=== PATIENT | female | born 1975 | race Caucasian/White ===

== ENCOUNTER → 2018-11-06 | Outpatient (CLI) | payer BC ==
--- NOTE | 2018-11-06 18:27 | Diagnostic Imaging Report ---
INDICATION: Dysfunctional uterine bleeding. TECHNIQUE: Pelvic sonography performed with transabdominal and transvaginal views. FINDINGS: The uterus measures 7.8 x 4.0 x 4.1 cm. There is no uterine mass. Endometrium measures 4 mm in thickness. There appears to be a trace of fluid in the endometrium, which may represent blood given the clinical history. The right ovary measures 2.2 x 1.5 x 1.5 cm. The right ovary contains color flow. The left ovary measures 3.7 x 2.5 x 2.2 cm. There appears to be a collapsed cyst in the left ovary measuring 2.3 x 1.6 x 1.3 cm. There is a trace of free fluid in the cul-de-sac. The left ovary does contain color flow. IMPRESSION: Normal-appearing uterus except for a trace of fluid in the endometrium, which may represent blood given the clinical history. The endometrium, however, does not appear to be appreciably thickened. The right ovary appears normal. The left ovary contains a probable collapsed cyst measuring 2.3 x 1.6 x 1.3 cm. Consider followup as clinically warranted. There is a trace of fluid in the cul-de-sac. Dictated on workstation # [id number]
--- NOTE | 2018-11-07 11:31 | Diagnostic Imaging Report ---
INDICATION: Routine screening. COMPARISON: 01/25/2014. TECHNIQUE: 2D and 3D bilateral screening mammography was performed with CAD. FINDINGS: Both breasts are heterogeneously dense, limiting the sensitivity of mammography. No dominant mass or malignant appearing microcalcifications are seen. The axillae are unremarkable. IMPRESSION: No mammographic features suspicious for malignancy are identified. ACR BI-RADS Category 1: Negative. Result letter will be mailed to the patient. Note: At least 10% of breast cancer is not imaged by mammography. Dictated by: Dictated on workstation # [id number]
== END ==
LOC: RAD 15:05
PROVIDERS: ATTEND Nurse Practitioner
DX: Z12.31 Encounter for screening mammogram for malignant neoplasm of breast (principal); N93.8 Other specified abnormal uterine and vaginal bleeding
CPT/HCPCS: 76830; 76856; 77067

== ENCOUNTER → 2018-12-11 | Outpatient (CLI) | payer BC ==
[2018-12-11 13:32] LABS: HEMATOCRIT 41 % (35-52); HEMOGLOBIN 14.2 G/DL (11.5-16.0); MEAN CORPUSCULAR HEMOGLOBIN 33 PG (25-34); MEAN CORPUSCULAR HGB CONC 35 G/DL (32-36); MEAN CORPUSCULAR VOLUME 94 FL (80-99); PLATELET COUNT 375 10^3/uL (130-400); RED CELL DISTRIBUTION WIDTH 11.7 % (10.0-14.5); WHITE BLOOD COUNT 7.1 10^3/uL (4.3-11.0)
[2018-12-11 13:33] LABS: BASOPHILS # (AUTO) 0.1 10^3/uL (0.0-0.1); BASOPHILS % (AUTO) 1 % (0-10); EOSINOPHILS # (AUTO) 0.2 10^3/uL (0.0-0.3); EOSINOPHILS % (AUTO) 3 % (0-10); LYMPHOCYTES % (AUTO) 23 % (12-44); MONOCYTES # (AUTO) 0.4 X 10^3 (0.0-1.0); MONOCYTES % (AUTO) 5 % (0-12); NEUTROPHILS # (AUTO) 4.9 X 10^3 (1.8-7.8); NEUTROPHILS % (AUTO) 69 % (42-75)
[2018-12-11 13:34] LABS: LYMPHOCYTES # (AUTO) 1.6 X 10^3 (1.0-4.0)
== END ==
LOC: LAB FS 13:18
PROVIDERS: ATTEND Nurse Practitioner
DX: D72.829 Elevated white blood cell count, unspecified (principal); R79.89 Other specified abnormal findings of blood chemistry
CPT/HCPCS: 36415; 85025

== ENCOUNTER → 2018-12-16 | Outpatient (CLI) | payer BC | LOC: LAB FS 12:44 | PROVIDERS: ATTEND Nurse Practitioner | DX: R79.89 Other specified abnormal findings of blood chemistry (principal) | CPT/HCPCS: 36415; 84443 ==

== ENCOUNTER → 2020-04-08 | Outpatient (CLI) | payer BC ==
--- NOTE | 2020-04-11 09:47 | Diagnostic Imaging Report ---
INDICATION: Routine screening. COMPARISON: 11/06/2018 and 01/25/2014. TECHNIQUE: 2D and 3D bilateral screening mammography was performed with CAD. FINDINGS: Both breasts remain heterogeneously dense, limiting the sensitivity of mammography. The parenchymal pattern is stable. No dominant mass or malignant appearing microcalcifications are seen. The axillae are unremarkable. IMPRESSION: No mammographic features suspicious for malignancy are identified. ACR BI-RADS Category 1: Negative. Result letter will be mailed to the patient. Note: At least 10% of breast cancer is not imaged by mammography. Dictated by: Dictated on workstation # [id number]
== END ==
LOC: RAD 14:10
PROVIDERS: ATTEND Obstetrics & Gynecology
DX: Z12.31 Encounter for screening mammogram for malignant neoplasm of breast (principal)
CPT/HCPCS: 77063; 77067

== ENCOUNTER 2020-05-10 10:29 | Outpatient (RCR) | payer BC ==
[~2020-05-10] VITALS: Ht 160 cm; Wt 87.3 kg
[2020-05-10] MEDS ORDERED: MULT-884 PO (11:49)
== END 2020-05-10 12:12 | disposition home or self-care (01) ==
LOC: PREOP 10:29
PROVIDERS: ATTEND Obstetrics & Gynecology
DX: Z01.818 Encounter for other preprocedural examination (principal)

== ENCOUNTER 2020-09-08 11:45 | Outpatient (RCR) | payer BC ==
[~2020-09-08] VITALS: Ht 160 cm; Wt 81.0 kg
[~2020-09-08 11:45] MED LIST: LORA10CA PO; MULT-884 PO
== END 2020-09-08 12:22 | disposition home or self-care (01) ==
LOC: PREOP 11:45
PROVIDERS: ATTEND Obstetrics & Gynecology
DX: Z01.812 Encounter for preprocedural laboratory examination (principal); N92.0 Excessive and frequent menstruation with regular cycle; N81.9 Female genital prolapse, unspecified; N39.3 Stress incontinence (female) (male); Z20.828 Contact with and (suspected) exposure to other viral communicable diseases

== ENCOUNTER → 2020-09-09 | Outpatient (CLI) | payer BC ==
[~2020-09-09] MED LIST changes: +ACET-93 PO; +DCS100C PO; +IBUP-844 PO; +OXC5T PO
== END ==
LOC: LAB FS 10:20
PROVIDERS: ATTEND Obstetrics & Gynecology
DX: Z01.812 Encounter for preprocedural laboratory examination (principal); N92.0 Excessive and frequent menstruation with regular cycle; N81.9 Female genital prolapse, unspecified; N39.3 Stress incontinence (female) (male); Z20.828 Contact with and (suspected) exposure to other viral communicable diseases
CPT/HCPCS: 87635

== ENCOUNTER 2020-09-13 12:03 | Day surgery (SDC) | payer BC ==
[2020-09-13] VITALS (11 sets, daily range): BP systolic 90–113; BP diastolic 49–73
[~2020-09-13] VITALS: Ht 160 cm; Wt 84.4 kg
[~2020-09-13 12:03] MED LIST changes: -ACET-93 PO; -DCS100C PO; -IBUP-844 PO; -OXC5T PO
[2020-09-13] MEDS ORDERED: ceFAZolin INJECTION 1,000 MG in WATER (STERILE) FOR INJECTION 10 ML IV ONE (12:15)
[2020-09-13] MEDS ORDERED: metroNIDAZOLE 500MG/100ML IVPB 100 ML IV ONE (12:15)
[2020-09-13] MEDS: LACTATED RINGERS 1,000 ML IV PRN ×2 (13:12→15:32)
[2020-09-13 13:30] LABS: BASOPHILS % (AUTO) 0 % (0-10); EOSINOPHILS # (AUTO) 0.1 10^3/uL (0.0-0.3); EOSINOPHILS % (AUTO) 1 % (0-10); HEMATOCRIT 42 % (35-52); HEMOGLOBIN 14.7 g/dL (11.5-16.0); LYMPHOCYTES # (AUTO) 1.3 10^3/uL (1.0-4.0); LYMPHOCYTES % (AUTO) 13 % (12-44); MEAN CORPUSCULAR HEMOGLOBIN 33 pg (25-34); MEAN CORPUSCULAR HGB CONC 35 g/dL (32-36); MEAN CORPUSCULAR VOLUME 94 fL (80-99); MONOCYTES # (AUTO) 0.4 10^3/uL (0.0-1.0); MONOCYTES % (AUTO) 5 % (0-12); NEUTROPHILS # (AUTO) 7.6 10^3/uL (1.8-7.8); NEUTROPHILS % (AUTO) 81 % (42-75); PLATELET COUNT 406 10^3/uL (130-400); WHITE BLOOD COUNT 9.4 10^3/uL (4.3-11.0)
--- NOTE | 2020-09-13 13:41 | History & Physical-Surgical ---
HPO-Surgical History of Present Illness Chief Complaint: menorrhagia, cystocele, stress incontinence Has been scheduled and rescheduled twice due to my family emergencies. Has been having heavy periods. Reports last year Cassi put her on a certain control for 3 months and didn't help. She had an ablation 5-6 years ago that worked for about 1-2 years. Reports her periods are not regular, some months she will have bleeding and other months she will just have mood swings and pain. She does spot. Has stress incontinence . Reports she has family history of gynecological cancer. She is scheduled for RaTH,briseida salpingectomy, PV sling, possible anterior colporrhaphy. She asked about leaving vs removing ovaries. Discussed in full. At this point she opts for leaving her ovaries. She has completed childbearing. No change in history since last visit. Pap at last visit was negative/negative Risks include bleeding, infection, injury to bowel, bladder and ureter. Patient understands these risks and consents obtained. NPO after midnight. Prophylactic antibiotics and SCDs. Diagnosis/Surgical Indication: MENNORHAGIA Procedure: RATH, BRISEIDA SALPINGECTOMY, SOLYX SLING, POSS ANT REPAIR, OIP Date of Surgery: Sep 13, 2020 Weight (Pounds): 186 Height (Inches): 63 Allergies and Home Medications Allergies Coded Allergies: acetaminophen (Verified Allergy, Mild, N/V, 08/31/20) erythromycin base (Verified Allergy, Mild, N/V, 08/31/20) hydrocodone (Verified Allergy, Mild, N/V, 08/31/20) Home Medications Loratadine 10 Mg Capsule, 10 MG PO DAILY, (Reported) Multivits,Ca,Minerals/Iron/FA 1 Each Tablet, 1 EACH PO DAILY, (Reported) Patient Home Medication List Home Medication List Reviewed: Yes Past Iaaixky-Wplwqb-Ayamcz Hx Patient Social History Number of Children: 2 Number of living children: 2 Employed/Student: employed Alcohol Use: Denies Use Recreational Drug Use: No Smoking Status: Never a Smoker 2nd Hand Smoke Exposure: No Recent Foreign Travel: No Contact w/other who traveled: No Recent Hopitalizations: No Immunizations Up To Date Date of Influenza Vaccine: Jun 27, 2020 Seasonal Allergies Seasonal Allergies: Yes Surgeries Yes (endometrial ablation) Tonsillectomy Respiratory No Cardiovascular No Neurological No Reproductive System Sexually Transmitted Disease: No HIV/AIDS: No Female Reproductive Disorders: Menstrual Problems Genitourinary Yes (stress incont) Gastrointestinal No Musculoskeletal No Endocrine History of Endocrine Disorders: No HEENT History of HEENT Disorders: No Cancer No Psychosocial History of Psychiatric Problem: No Integumentary History of Skin or Integumenta: No Blood Transfusions History of Blood Disorders: No Exam Vital Signs Capillary Refill : Labs Laboratory Tests Test 09/13/20 12:20 Range/Units General Appearance: Alert, Oriented X3, Cooperative HEENT: Atraumatic, PERRLA Respiratory: Clear to Auscultation, Normal Air Movement Cardiovascular: Regular Rate, Normal S1, Normal S2 Assessment/Plan Assessment and Plan 1. abnormal uterine bleeding 2. incomplete uterovaginal prolapse 2. cystocele 3. Stress incontinence Surgery is planned for 09/13/2020. see above Admission Diagnosis Admission Status: Other (Same Day Surgery) STEVE BENJAMIN DO Sep 13, 2020 13:41
[2020-09-13] MEDS ORDERED: LIDOCAINE/EPI 1%-1:100,000 (XYLOCAINE) 50 ML ONE (13:54)
[2020-09-13] MEDS ORDERED: MIDAZOLAM 2 MG/2 ML (VERSED) VIAL ONE (14:02)
[2020-09-13] MEDS ORDERED: ONDANSETRON 4 MG/2 ML (SDV) Z0FRAN ONE (14:02)
[2020-09-13] MEDS ORDERED: SEVOFLURANE (ULTANE) 15 ML INHAL SOLN ONE ×4 (14:02→17:08)
[2020-09-13] MEDS ORDERED: LIDOCAINE PF 2% 5 ML (XYLOCAINE) VIAL ONE (14:02)
[2020-09-13] MEDS ORDERED: fentaNYL INJECTION 100 MCG/2 ML AMP ONE (14:02)
[2020-09-13] MEDS ORDERED: proPOfol 200 MG/20 ML (DIPRIVAN) VIAL IV ONE (14:02)
[2020-09-13] MEDS ORDERED: morphine INJ 4 MG/ML 1 ML (VIAL/SYRINGE) IVP PRN (15:00)
[2020-09-13] MEDS ORDERED: KETOROLAC 30 MG/ML VIAL IV SCH (15:00)
[2020-09-13] MEDS ORDERED: CHLORASEPTIC LOZENGE MM PRN (15:00)
[2020-09-13] MEDS ORDERED: ONDANSETRON 4 MG (ZOFRAN) ORAL DISSOLVE TAB PO PRN (15:00)
[2020-09-13] MEDS ORDERED: HYDROmorphone 2 MG/ML VIAL (DILAUDID) ONE (15:30)
[2020-09-13] MEDS ORDERED: ROCURONIUM 10 MG/ML 5 ML SYRINGE IV ONE ×2 (16:10→17:07)
[2020-09-13] MEDS ORDERED: NS (IVPB) 0 ML ONE (16:20)
[2020-09-13] MEDS ORDERED: ESTRADIOL VAGINAL CREAM 42.5 GM (ESTRACE) VG ONE (16:20)
[2020-09-13] MEDS ORDERED: KETOROLAC 30 MG/ML VIAL ONE (16:25)
--- NOTE | 2020-09-13 16:54 | Operative Report ---
Operative Report Date of Procedure/Surgery Sep 13, 2020 Surgeon (s) STEVE BENJAMIN DO Donation Worker (s): NA Post-Operative Diagnosis menorrhagia/s/p ablation; abnormal uterine bleeding incomplete urogenital prolapse stress incontinence cystocele Procedure Performed RaTH, bilateral salpingectomy Solyx pubovaginal sling Description of Procedure Anesthesia Type: General Estimated blood loss (mL): minimal Specimen(s) collected/removed uterus, bilateral tubes Description of the Procedure After informed consent was obtained, patient was taken into the operating room where general anesthetic was found to be adequate. She was prepped and draped in the usual sterile fashion in the dorsal lithotomy position. A Carver catheter was placed. A speculum was placed in the vagina. There was uterine prolapse to 2-3+ and a 2+ cystocele with minimal rectocele. There was > 45 degree rotation of the urethra. The cervix was visualized and the anterior lip was grasped with a sharp toothed tenaculum. The uterus was sounded and depth was approximately 8 centimeters. I placed the Liss device (8 cm) and a 3.0 cm collar was advanced over the cervix. I inserted the Liss without difficulty, inflating the balloon and securing it around the fornix of the cervix. The collar was then secured with sutures at 12 o'clock. Attention was then turned to the patient's abdomen. A supraumbilical incision was made about 8 mm. A Veress needle was inserted and I confirmed intraabdominal placement with a drop in pressure and the saline drop test. The opening pressure was 7 mmHg. I then insufflated the abdomen to a maximum of 15 mmHg with warmed CO2 gas. I placed an additional 8 mm trocar in the left abd omen lateral to the umbilicus approximately 15 cm. The second robotic port was placed about 12 cm lateral to the right placement. This was an 8 mm trocar. These were placed under direct visualization of the laparoscope. 1% lidocaine with epinephrine was injected prior to placement of all trocars. When all placements were confirmed, the patient was placed in steep Trendelenburg allowing adequate visualization and the robot was brought in for docking. The docking was accomplished without difficulty. I then took over the command of the robot utilizing the vessel sealer and monopolar wilbert. I was able to visualize the round ligaments bilaterally and grasped them and cauterized with bipolar cautery and then cut with my wilbert. At this point, I then did bilateral salpingectomy. I incised the mesosalpinx with the wilbert. Then, I grasped with cornu and transected bilaterally using the vessel sealer. I then moved my dissection to the posterior leaves of the broad ligament. I dissected the posterior leaves of the broad ligament off the uterine arteries skeletonizing them bilaterally. I then took a second clamp with the bipolar cautery and with the wilbert, transected the vessels away from the lateral aspect to the cervical stroma. I dissected the anterior peritoneum off the lower uterine segment. I continually pushed the bladder back and I took excessively great care and I was eventually able to dissect the vesicouterine peritoneum off the lower uterine segment. I then dissected in a V fashion towards the midline between the uterosacral ligaments. This allowed me to skeletonize the uterine vessels bilaterally. The balloon on the LISS was insufflated. This allowed me to see the LISS circumferentially. Then the administrative assistant coordinator removed the uterus, tubes through the vagina. She then left a sponge in the vagina to maintain the pneumoperitoneum. The ureters were continued to be visualized and were peristalsing. I then began closure of the vaginal cuff. The uterus was left in the vagina to maintain pneumoperitoneum. I closed the apices of the vaginal cuff with 2-0 Vicryl V lock sutures with a colposuspension through the uterosacral ligaments. This suspended the apices of the vaginal cuff. I extended this to the midline from both sides and overlapped the V lock sutures in the midline. Excellent closure is noted and hemostasis is achieved. All the needles were removed from the patient's abdomen. . Now, the robotic instruments were removed and the robot was docked back to laparoscopy. The pelvis was irrigated. There was no active bleeding noted. Bilateral ureters were seen the entire time during the surgery and were peristalsing. There was no excessive bleeding noted. The trocars were removed under direct visualization. The laparoscopic sites were visualized and found to be hemostatic. The trocar sites were injected with 0.25% Marcaine. The skin incisions were closed with 4-0 Monocryl in a subcuticular fashion and then with Dermabond. Op sites were placed over the incision sites. The instruments were removed from the vagina and I noted there were no abrasions. The patient was repositioned. The cystocele was mostly reduced so I proceeded with the pubovaginal sling. The periurethral area was injected with dilute vasopressin. I grasped in the midline with an Allis clamp and a 1 cm incision was made approximately 1.5 cm from the urethral meatus. I then dissected bilaterally to the obturator space bilaterally. I then placed the Solyx sling in the standard fashion. I then did cystoscopy and there was no abnormal pathology and no mesh in the bladder. The ureters were seen bilaterally and urine was effluxing from each side. I then tightened the sling after doing Crede maneuver with 300 ml urine in the bladder. The sling laid under the urethral in the midurethra without twisting or folds. There was minimal leakage noted. I then closed the epithelial incision with 4--0 Monocryl in a running fashion. There was good hemostasis. Sponge, lap, needle and instrument counts correct times two. Patient was awakened and taken to recovery in a stable condition. Findings of the Procedure enlarged, boggy uterus, long cervix, but good support at cuff normal appearing tubes Javier masters window, superficial endometriosis 2+ cystocele, improved with hysterectomy > 45 degree rotation of the urethra Allergies and Home Medications Allergies Coded Allergies: acetaminophen (Verified Allergy, Mild, N/V, 08/31/20) erythromycin base (Verified Allergy, Mild, N/V, 08/31/20) hydrocodone (Verified Allergy, Mild, N/V, 08/31/20) Home Medications Acetaminophen 500 Mg Tablet, 1,000 MG PO Q8HR Prescribed by: STEVE BENJAMIN on 09/13/201655 Docusate Sodium 100 Mg Capsule, 100 MG PO BID Prescribed by: STEVE BENJAMIN on 09/13/201655 Ibuprofen 600 Mg Tablet, 600 MG PO Q6HR Prescribed by: STEVE BENJAMIN on 09/13/201655 Loratadine 10 Mg Capsule, 10 MG PO DAILY, (Reported) Multivits,Ca,Minerals/Iron/FA 1 Each Tablet, 1 EACH PO DAILY, (Reported) Oxycodone Hcl 5 Mg Tab, 5 MG PO Q4HR PRN for To achieve TAG Prescribed by: STEVE BENJAMIN on 09/13/201655 Patient Home Medication List Home Medication List Reviewed: Yes STEVE BENJAMIN DO Sep 13, 2020 16:54
[2020-09-13] MEDS ORDERED: OXC5T PO (16:56)
[2020-09-13] MEDS ORDERED: DCS100C PO (16:56)
[2020-09-13] MEDS ORDERED: ACET-93 PO (16:56)
[2020-09-13] MEDS ORDERED: IBUP-844 PO (16:56)
--- NOTE | 2020-09-13 16:59 | Discharge Inst-Women's Service ---
Discharge Inst-Women's Serv Depart Medication/Instructions New, Converted or Re-Newed RX: Other (on chart and transmitted) Final Diagnosis abnormal uterine bleeding urogenital prolapse stress incontinence Problems Reviewed?: Yes Consults/Follow Up Additional Follow Up: Yes (1 week for incision check and 10-12 weeks for pelvic exam ) Activity Activity: Activity as Tolerated Driving Instructions: No Driving for 1 Week NO SMOKING: NO SMOKING Nothing Inside Vagina: No Douching, No [place], No Tampons (until cleared/10-12 weeks) Diet Discharge Diet: No Restrictions Symptoms to Report to : Bleeding Excessive, Pain Increased, Fever Over 101 Degrees F, Vaginal Bleeding Increase, Cramps in Feet or Legs, Vaginal Discharge Foul For Any Problems or Questions: Contact Your Physician Skin/Wound Care Infection Signs and Symptoms: Increased Redness, Foul Odor of Wound, Increased Drainage, Skin Itchy or Has a Rash, Increased Swelling, Temperature Above 101 F Operative Area Clean and Dry: You May Remove Bandage (leave in place for 72 hours, unless wet or soiled) Stitches/Christiana/Dermabond: Dermabond Bathing Instructions: STEVE Britton DO Sep 13, 2020 16:59
[2020-09-13] MEDS ORDERED: SUGAMMADEX 500 MG/5 ML VIAL (BRIDION) IV ONE (17:10)
[2020-09-13] MEDS ORDERED: HYDROmorphone 2 MG/ML VIAL (DILAUDID) IV ONE (17:15)
[2020-09-13] MEDS ORDERED: ONDANSETRON 4 MG/2 ML (SDV) Z0FRAN IVP PRN (17:15)
[2020-09-13] MEDS: LACTATED RINGERS 1,000 ML IV SCH ×2 (17:20→18:00)
--- NOTE | 2020-09-13 17:45 | NUR ---
Marie Rivas admitted to room 305,after a robotic assisted total laproscopic hysterectomy with BS, sling and cysto, accompanied by PACU staff. MARIE RIVAS introduced to surroundings, call light, bed controls, phone, TV, temperature control, lights, meal times, smoking policy, visitor policy, side rail policy, bathrooms and showers.
--- NOTE | 2020-09-13 17:50 | NUR ---
Introduced self to patient. Fresh ice water given, vitals taken, physical shift assessment completed. No further needs at this time.
--- NOTE | 2020-09-13 19:30 | NUR ---
Pt laying awake in bed, plan of care reviewed with pt, Fresh ice, coke and sandwich tray given. Fresh ice pack to abdomen. Pt repositioned in bed and sitting up. Carver cath to DD. Dressings x3 dry and intact.
[2020-09-13] MEDS: DOCUSATE SODIUM 100 MG (COLACE) CAP PO SCH (19:36)
[2020-09-13] MEDS: ACETAMINOPHEN 500 MG TAB (TYLENOL) PO SCH (21:48)
[2020-09-13] MEDS: KETOROLAC 30 MG/ML VIAL IV SCH (22:56)
[2020-09-14] MEDS: LACTATED RINGERS 1,000 ML IV SCH ×2 (00:58→09:05)
[2020-09-14 04:15] VITALS: BP 99/54
[2020-09-14] MEDS: KETOROLAC 30 MG/ML VIAL IV SCH (04:54)
[2020-09-14] MEDS ORDERED: SIMETHICONE 80 MG (MYLICON) CHEW ONE (05:09)
[2020-09-14] MEDS ORDERED: SIMETHICONE 80 MG (MYLICON) CHEW PO ONE (05:15)
[2020-09-14] MEDS: ACETAMINOPHEN 500 MG TAB (TYLENOL) PO SCH (07:01)
[2020-09-14 09:05] VITALS: BP 94/53
[2020-09-14] MEDS: DOCUSATE SODIUM 100 MG (COLACE) CAP PO SCH (09:05)
--- NOTE | 2020-09-14 09:10 | NUR ---
THIS RN TO BEDSIDE. PT LYING IN BED. VS OBTAINED. MEDS GIVEN; SEE EMAR FOR FURTHER. INITIAL SHIFT ASSESSMENT COMPLETED; SEE INTERVENTION FOR FURTHER. FRESH ICE PACK PROVIDED. NO FURTHER NEEDS VOICED AT THIS TIME. CALL LIGHT WITHIN REACH.
--- NOTE | 2020-09-14 10:15 | NUR ---
PT UP TO THE BATHROOM WITH STAND BY ASSIST. PT WAS ABLE TO VOID 100 ML OF CLEAR YELLOW URINE. PT BACK TO BED; WANTS TO TAKE A SHOWER LATER ON AFTER SHE SEES HOW SHE FEELS AFTER GETTING UP.
--- NOTE | 2020-09-14 11:15 | NUR ---
IV DC'D. CATHETER TIP INTACT. SITE COVERED WITH GAUZE AND TAPE. PT UP TO SHOWER.
--- NOTE | 2020-09-14 11:55 | NUR ---
DISCHARGE PAPERS PROVIDED AND REVIEWED WITH PT, PT VERBALIZES UNDERSTANDING, QUESTIONS ANSWERED. PAPER SIGNED. FOLLOW UP APPOINTMENT CARDS AND PRESCRIPTION ALSO PROVIDED AT THIS TIME AND PLACED INTO DISCHARGE FOLDER.
--- NOTE | 2020-09-14 12:45 | NUR ---
PT DISCHARGED FROM [facility]-305 TO PERSONAL AUTO VIA W/C IN STABLE CONDITION ACC BY THIS RN.
[2020-09-14] MEDS ORDERED: IBUPROFEN 600 MG (MOTRIN) TAB PO SCH (16:00)
--- NOTE | 2020-09-15 07:34 | Anesthesia-General Post-Op ---
General Patient Condition Mental Status/LOC: Same as Preop Cardiovascular: Satisfactory Nausea/Vomiting: Absent Respiratory: Satisfactory Pain: Controlled Complications: Absent Post Op Complications Complications None Follow Up Care/Instructions Patient Instructions None needed. Anesthesia/Patient Condition Patient Condition Patient is doing well, no complaints, stable vital signs, no apparent adverse anesthesia problems. No complications reported per nursing. D/C home per [facility] Criteria: Yes [place] CAMPBELL CRNA Sep 15, 2020 07:34
== END 2020-09-14 12:45 | disposition home or self-care (01) ==
LOC: SDC 12:03 → WS 17:45 → SDC 09-14 12:45
PROVIDERS: ATTEND Obstetrics & Gynecology
DX: N92.0 Excessive and frequent menstruation with regular cycle (principal); N93.9 Abnormal uterine and vaginal bleeding, unspecified; N39.3 Stress incontinence (female) (male); N81.10 Cystocele, unspecified; Z79.899 Other long term (current) drug therapy; Z88.1 Allergy status to other antibiotic agents; Z88.5 Allergy status to narcotic agent; E66.9 Obesity, unspecified; Z68.32 Body mass index [BMI] 32.0-32.9, adult
CPT/HCPCS: 57288; 58571; 84703; 85025; 86850; 86900; 86901; 87081; 94664; C1771; 36415; 88305